=== PATIENT | male | born 1995 | race Hispanic/Latino ===

== ENCOUNTER 2017-02-11 15:19 | Emergency (ER) | payer OTHER ==
[~2017-02-11] VITALS: Ht 170.2 cm; Wt 79.4 kg
[2017-02-11] MEDS ORDERED: NS 1,000 ML IV ONE (15:45)
[2017-02-11] MEDS ORDERED: ACETAMINOPHEN 325 MG TAB PO ONE (15:45)
[2017-02-11 16:11] LABS: BASO % 0.3 % (0.0-1.0); EOS % 0.5 % (0.0-3.0); LARGE UNSTAINED CELL # 0.2 K/mm3 (0.0-0.4); LARGE UNSTAINED CELL % 2.2 % (0.0-4.0); LYMPH # 1.9 K/mm3 (1.5-6.5); LYMPH % 19.3 % (24.0-44.0); MEAN CORPUSCULAR HEMOGLOBIN 32.2 pg (27.0-33.0); MEAN CORPUSCULAR HGB CONC 35.6 g/dl (32.0-36.5); MEAN CORPUSCULAR VOLUME 90.3 fl (80.0-96.0); MONO # 0.5 K/mm3 (0.0-0.8); MONO % 5.5 % (0.0-5.0); NEUTROPHILS # 6.2 K/mm3 (1.8-7.7); NEUTROPHILS % 72.2 % (36.0-66.0); PLATELET COUNT, AUTOMATED 220 k/mm3 (150-450); RED CELL DISTRIBUTION WIDTH 12.7 % (11.5-14.5); WHITE BLOOD COUNT 8.6 K/mm3 (4.0-10.0)
[2017-02-11 16:17] LABS: METHADONE URINE NEGATIVE (NEGATIVE)
[2017-02-11 16:34] LABS: ALBUMIN 4.8 GM/DL (3.2-5.2); ALBUMIN/GLOBULIN RATIO 1.37 (1.00-1.93); ALKALINE PHOSPHATASE 128 U/L (45-117); ALT/SGPT 25 U/L (12-78); ANION GAP 12 MEQ/L (8-16); AST/SGOT 21 U/L (15-37); BILIRUBIN,DIRECT 0.4 MG/DL (0.0-0.2); BILIRUBIN,TOTAL 1.6 MG/DL (0.2-1.0); BLOOD UREA NITROGEN 6 MG/DL (7-18); CALCIUM LEVEL 9.2 MG/DL (8.5-10.1); CARBON DIOXIDE LEVEL 24 MEQ/L (21-32); CHLORIDE LEVEL 105 MEQ/L (98-107); CREATININE FOR GFR 1.05 MG/DL (0.70-1.30); GLUCOSE, FASTING 84 MG/DL (70-105); POTASSIUM SERUM 3.8 MEQ/L (3.5-5.1); SODIUM LEVEL 141 MEQ/L (136-145); TOTAL PROTEIN 8.3 GM/DL (6.4-8.2)
[2017-02-11 16:53] VITALS: BP 160/99
--- NOTE | 2017-02-13 06:32 | ECGEPIP ---
Stationary ECG Study [facility] - ED Test Date: 2017-02-11 Pat Name: PADMA BRUMFIELD Department: Room: - Gender: M [employer]: [place] : 1995 Requested By: CATALINO Marie PA-C Order Number: [id number] Reading MD: Ronald Chavez Measurements Intervals [place] Rate: 113 P: 50 ME: 137 QRS: 52 QRSD: 87 T: 13 QT: 323 QTc: 444 Interpretive Statements SINUS TACHYCARDIA NONSPECIFIC T WAVE ABNORMALITY NO PRIORS Electronically Signed On 02-13-2017 6:32:03 EDT by Ronald Chavez
== END 2017-02-11 17:05 | disposition home or self-care (01) ==
LOC: M ED 15:53
DX: R51 Headache (principal); R00.2 Palpitations; T40.5X1A Poisoning by cocaine, accidental (unintentional), initial encounter
CPT/HCPCS: 80048; 80076; 80306; 82550; 82553; 85025; 93005; 99283; G0480

== ENCOUNTER → 2017-06-27 | Outpatient (REF) | payer OTHER ==
[2017-06-29 11:04] LABS: HEPATITIS B SURFACE ANTIBODY NEGATIVE (POSITIVE)
== END ==
LOC: M LAB REF 16:23
PROVIDERS: ATTEND Family Medicine Addiction Medicine
DX: Z20.2 Contact with and (suspected) exposure to infections with a predominantly sexual mode of transmission (principal)

== ENCOUNTER 2018-08-12 08:54 | Emergency (ER) | payer OTHER ==
[2018-08-12] MEDS: hydrOXYzine 50 MG TAB PO (10:10)
[2018-08-12 10:17] LABS: HEMATOCRIT 42.9 % (42.0-52.0); HEMOGLOBIN 15.1 g/dl (13.5-17.5); MEAN CORPUSCULAR HEMOGLOBIN 32.3 pg (27.0-33.0); MEAN CORPUSCULAR HGB CONC 35.2 g/dl (32.0-36.5); MEAN CORPUSCULAR VOLUME 91.9 fl (80.0-96.0); PLATELET COUNT, AUTOMATED 289 10^3/uL (150-450); RED BLOOD COUNT 4.67 10^6/uL (4.30-6.10); RED CELL DISTRIBUTION WIDTH 11.8 % (11.5-14.5); WHITE BLOOD COUNT 9.9 10^3/uL (4.0-10.0)
[2018-08-12 10:41] LABS: ANION GAP 7 MEQ/L (8-16); BLOOD UREA NITROGEN 14 MG/DL (7-18); CALCIUM LEVEL 9.2 MG/DL (8.5-10.1); CARBON DIOXIDE LEVEL 27 MEQ/L (21-32); CHLORIDE LEVEL 102 MEQ/L (98-107); CREATININE FOR GFR 1.07 MG/DL (0.70-1.30); GLOMERULAR FILTRATION RATE > 60.0 (>60); GLUCOSE, FASTING 105 MG/DL (70-100); POTASSIUM SERUM 3.4 MEQ/L (3.5-5.1); SODIUM LEVEL 136 MEQ/L (136-145)
== END 2018-08-12 11:22 | disposition home or self-care (01) ==
LOC: M ED 08:54
DX: F41.9 Anxiety disorder, unspecified (principal)
CPT/HCPCS: 70450

== ENCOUNTER → 2018-09-27 | Outpatient (REF) | payer OTHER ==
[~2018-09-27] MED LIST: HYDR-3363 PO
[2018-09-27 12:30] LABS: CHOLESTEROL LEVEL 167 MG/DL (<200); CHOLESTEROL RISK RATIO 2.087 (<5); HDL CHOLESTEROL 80 MG/DL (>40); LDL CHOLESTEROL 74 MG/DL (<100); NON-HDL-C 87 MG/DL; TRIGLYCERIDES LEVEL 64 MG/DL (<150)
[2018-09-27 13:07] LABS: HIV 1&2 SCREEN CENTAUR NEGATIVE (NEGATIVE)
== END ==
LOC: M SFHCPLAZ 09:25
PROVIDERS: ATTEND Family Medicine
DX: Z11.4 Encounter for screening for human immunodeficiency virus [HIV] (principal); Z13.220 Encounter for screening for lipoid disorders; F41.9 Anxiety disorder, unspecified
CPT/HCPCS: 36415; 80061; 84443; 87389; 90471; 90686; G0463

== ENCOUNTER 2019-04-14 20:14 | Emergency (ER) | payer OTHER ==
[~2019-04-14] VITALS: Ht 167.6 cm; Wt 79.5 kg
[2019-04-14 21:29] LABS: HEMATOCRIT 43.4 % (42.0-52.0); HEMOGLOBIN 15.2 g/dl (13.5-17.5); MEAN CORPUSCULAR VOLUME 91.4 fl (80.0-96.0); PLATELET COUNT, AUTOMATED 253 10^3/uL (150-450); RED BLOOD COUNT 4.75 10^6/uL (4.30-6.10); WHITE BLOOD COUNT 7.5 10^3/uL (4.0-10.0)
[2019-04-14 21:58] LABS: ALBUMIN 4.5 GM/DL (3.2-5.2); ALT/SGPT 32 U/L (12-78); BILIRUBIN,TOTAL 3.2 MG/DL (0.2-1.0); BLOOD UREA NITROGEN 11 MG/DL (7-18); CALCIUM LEVEL 9.7 MG/DL (8.5-10.1); CARBON DIOXIDE LEVEL 29 MEQ/L (21-32); CHLORIDE LEVEL 106 MEQ/L (98-107); CK-MB VALUE MASS < 1.0 NG/ML (<3.6); CPK CREATINE PHOSPHOKINASE 124 U/L (39-308); CREATININE FOR GFR 1.09 MG/DL (0.70-1.30); GLOMERULAR FILTRATION RATE > 60.0 (>60); GLUCOSE, FASTING 91 MG/DL (70-100); MB/CK RELATIVE INDEX 0.81 (< OR =4); POTASSIUM SERUM 4.2 MEQ/L (3.5-5.1); SODIUM LEVEL 141 MEQ/L (136-145); TOTAL PROTEIN 8.1 GM/DL (6.4-8.2); TROPONIN I < 0.02 NG/ML (< 0.10)
[2019-04-15 04:36] VITALS: BP 144/102
[2019-04-15] MEDS ORDERED: KETOROLAC 60 MG/2 ML VIAL (J1885) IM ONE (06:15)
--- NOTE | 2019-04-15 07:03 | ECGEPIP ---
[facility] - ED Test Date: 2019-04-14 Pat Name: PADMA BRUMFIELD Department: Room: - Gender: Male [employer]: [place] : 1995 Requested By: ILA KEYS Order Number: [id number] Reading MD: Ronald Chavez Measurements Intervals [place] Rate: 96 P: 42 NC: 116 QRS: 58 QRSD: 87 T: 27 QT: 339 QTc: 429 Interpretive Statements SINUS RHYTHM WITH SINUS ARRHYTHMIA WITH SHORT NC INTERVAL NSTTW ABNORMALITIES SIMILAR TO 02/11/17 Electronically Signed on 04-15-2019 7:03:08 EDT by Ronald Chavez
--- NOTE | 2019-04-15 07:30 | REP ---
The PA and lateral chest: There are no comparisons. The lung domínguez are clear. The cardiac size is normal. The chetna, mediastinum, and skeletal structures are unremarkable. Impression: Negative PA and lateral chest. Electronically Signed by Winston Jaimes MD 04/15/2019 07:21 A
== END 2019-04-15 06:50 | disposition home or self-care (01) ==
LOC: M ED 20:14
DX: R07.1 Chest pain on breathing (principal); F41.9 Anxiety disorder, unspecified
CPT/HCPCS: 36415; 71046; 80053; 82550; 82553; 84484; 85027; 93005; 96372; 99284; J1885